=== PATIENT | male | born 1950 | race Hispanic/Latino ===

== ENCOUNTER 2017-09-15 07:27 | Day surgery (SDC) | payer MEDICARE, OTHER ==
[2017-09-15] MEDS ORDERED: Lactated Ringer's 500 ML IV ONE (08:13)
[2017-09-15 08:15] VITALS: BMI 21.4
[2017-09-15] MEDS ORDERED: Etomidate 20 mg/10ml Inj IV ONE ×2 (08:35→09:01)
[2017-09-15] MEDS ORDERED: Propofol 10 mg/ml Inj (20 ML) ONE (08:36)
[2017-09-15] MEDS ORDERED: Midazolam 2 MG/2 ML VIAL ONE (08:36)
[2017-09-15] MEDS ORDERED: Lidocaine 2% MPF (5 ml) Inj ONE (08:36)
[2017-09-15 09:43] VITALS: BP 117/74; PULSE 66; RESP 17; TEMP 98; O2SAT 100
== END 2017-09-15 10:00 | disposition home or self-care (01) ==
LOC: H.ENDO 07:27
PROVIDERS: ATTEND Internal Medicine Gastroenterology
DX: Z12.11 Encounter for screening for malignant neoplasm of colon (principal); D12.4 Benign neoplasm of descending colon; K57.30 Diverticulosis of large intestine without perforation or abscess without bleeding; K64.0 First degree hemorrhoids; I48.91 Unspecified atrial fibrillation; Z79.01 Long term (current) use of anticoagulants; M19.90 Unspecified osteoarthritis, unspecified site; N40.0 Benign prostatic hyperplasia without lower urinary tract symptoms; Z90.49 Acquired absence of other specified parts of digestive tract; Z80.1 Family history of malignant neoplasm of trachea, bronchus and lung; Z82.49 Family history of ischemic heart disease and other diseases of the circulatory system; Z83.3 Family history of diabetes mellitus; Z80.6 Family history of leukemia
CPT/HCPCS: 45380; 88305; J2250; J2704; J7120